=== PATIENT | male | born 1975 | race Caucasian/White ===

== ENCOUNTER 2024-07-21 14:17 | Emergency (ER) | payer MEDICAID ==
[~2024-07-21] VITALS: Ht 154.9 cm; Wt 105.5 kg
[2024-07-21 14:22] VITALS: BP 164/101; PULSE 89; TEMP 100.4; O2SAT 98
[2024-07-21 16:48] VITALS: RESP 16
== END 2024-07-21 17:11 | disposition home or self-care (01) ==
LOC: ER 14:18
DX: J10.1 Influenza due to other identified influenza virus with other respiratory manifestations (principal); R11.2 Nausea with vomiting, unspecified; R19.7 Diarrhea, unspecified; Z88.0 Allergy status to penicillin
CPT/HCPCS: 71045; 87502; 87503; 99284

== ENCOUNTER 2024-09-12 08:13 | Emergency (ER) | payer MEDICAID ==
[~2024-09-12] VITALS: Ht 154.9 cm; Wt 108.6 kg
[2024-09-12 09:09] VITALS: TEMP 98
[2024-09-12 09:44] VITALS: BP 130/56; PULSE 64; RESP 15; O2SAT 98
== END 2024-09-12 09:46 | disposition home or self-care (01) ==
LOC: ER 08:14 → EDSEX 08:14 → ER 09:46
DX: S83.92XA Sprain of unspecified site of left knee, initial encounter (principal); Z88.0 Allergy status to penicillin; W19.XXXA Unspecified fall, initial encounter; Y93.89 Activity, other specified; Y92.89 Other specified places as the place of occurrence of the external cause; Y99.8 Other external cause status
CPT/HCPCS: 73564; 99284